=== PATIENT | female | born 1945 | race Caucasian/White ===

== ENCOUNTER 2021-06-19 12:42 | Inpatient (IN) | payer MEDICARE, OTHER ==
[~2021-06-19] VITALS: Ht 165.1 cm; Wt 83.9 kg
[~2021-06-19 12:42] MED LIST: ENTRESTO 49 MG1 EACH PO; FUROSEMIDE40 MG PO; HM COMPLETE MU1 EACH PO; HYDROCODON-ACE1 EAC2 PO; HYDROCODON-ACE1 EAC4 PO; HYDROXYCHLOROQ200 MG PO; LEVAQUIN500 MG PO; NYSTOP60 GM TOP; OMEPRAZOLE40 MG PO; OMNICEF 300 MG300 MG PO; POTASSIUM CHLO20 ME2 PO; RISPERDAL 0.20.25 MG PO; VENTOLIN HFA 66.7 GM INH; VITAMIN D21250 MCG PO; VOLTAREN ARTHRI20 GM TP
[2021-06-19 13:40] LABS: RED BLOOD COUNT 3.8 M/UL (4.00-5.10); WHITE BLOOD COUNT 8.6 K/UL (4.5-11.0)
[2021-06-19 14:01] LABS: BUN/CREATININE RATIO 17 (0-10)
[2021-06-20 02:40] LABS: HEMOGLOBIN 11.9 gm/dl (12.3-15.3); RED BLOOD COUNT 3.75 M/UL (4.00-5.10); WHITE BLOOD COUNT 6.7 K/UL (4.5-11.0)
[2021-06-20 02:59] LABS: BUN/CREATININE RATIO 26 (0-10)
[2021-06-21 04:30] LABS: BUN/CREATININE RATIO 22 (0-10)
[2021-06-21] MEDS ORDERED: BUSPIRONE HCL10 MG PO (16:21)
[2021-06-21] MEDS ORDERED: CITALOPRAM HBR40 MG PO (16:50)
[2021-06-22 04:17] LABS: BUN/CREATININE RATIO 29 (0-10)
[2021-06-22 04:22] LABS: HEMOGLOBIN 11.9 gm/dl (12.3-15.3); RED BLOOD COUNT 3.81 M/UL (4.00-5.10)
[2021-06-22 04:30] LABS: WHITE BLOOD COUNT 9.1 K/UL (4.5-11.0)
[2021-06-23 03:03] LABS: HEMOGLOBIN 12.6 gm/dl (12.3-15.3); RED BLOOD COUNT 3.99 M/UL (4.00-5.10)
[2021-06-23 03:16] LABS: WHITE BLOOD COUNT 12.8 K/UL (4.5-11.0)
[2021-06-23 03:33] LABS: BUN/CREATININE RATIO 36 (0-10)
[2021-06-25] MEDS ORDERED: PREDNISONE 10 M10 MG PO (09:46)
[2021-06-25] MEDS ORDERED: TRELEGY ELLIPT1 EAC1 INH (09:46)
== END 2021-06-25 13:00 | disposition home health service (06) | DRG 189 ==
LOC: ER1 12:42 → CDU 16:57 → M/S 16:57
PROVIDERS: Physician Assistant; ADMIT Internal Medicine
DX: J96.21 Acute and chronic respiratory failure with hypoxia (principal); J44.1 Chronic obstructive pulmonary disease with (acute) exacerbation; I50.22 Chronic systolic (congestive) heart failure; E87.1 Hypo-osmolality and hyponatremia; Z20.822 Contact with and (suspected) exposure to COVID-19; J96.22 Acute and chronic respiratory failure with hypercapnia; I11.0 Hypertensive heart disease with heart failure; I87.8 Other specified disorders of veins; M51.36 Other intervertebral disc degeneration, lumbar region; R53.81 Other malaise; F17.210 Nicotine dependence, cigarettes, uncomplicated; E87.6 Hypokalemia; K21.9 Gastro-esophageal reflux disease without esophagitis; M32.9 Systemic lupus erythematosus, unspecified; I27.20 Pulmonary hypertension, unspecified; Z99.81 Dependence on supplemental oxygen; Z98.890 Other specified postprocedural states; Z90.710 Acquired absence of both cervix and uterus
CPT/HCPCS: 0240U; 36415; 36600; 71045; 80048; 80053; 81001; 82550; 82553; 82803; 84439; 84443; 84484; 85025; 87086; 93005; 94640; 94664; 94760; 96374; 97110-GP-CQ; 97116; 97116-GP-CQ; 97161; 97530; 97530-GP-CQ; 99285; J1650; J2920; J2930; J3480; J7030